=== PATIENT | male | born 2000 ===

== ENCOUNTER 2023-03-23 16:56 | Emergency (ER) | payer SELFPAY ==
[~2023-03-23] VITALS: Ht 162.6 cm; Wt 77.3 kg
[2023-03-23] MEDS ORDERED: ondansetron 4mg rapidly disintigrating tab PO ONE ×2 (18:30→21:35)
[2023-03-23] MEDS ORDERED: HYDROcodone/acetaminophen 5mg/325mg tablet PO ONE (18:30)
[2023-03-23] MEDS ORDERED: morphine 4 MG/ML inj SYRINge IM ONE (21:35)
[2023-03-23] MEDS ORDERED: OXYC-145 PO (22:40)
[2023-03-23 22:58] VITALS: BP 125/78
[2023-03-24] MEDS ORDERED: OXYC-150 PO (17:13)
== END 2023-03-23 23:04 | disposition home or self-care (01) ==
LOC: ER 16:58
DX: M53.3 Sacrococcygeal disorders, not elsewhere classified (principal); M54.59 Other low back pain; Z79.899 Other long term (current) drug therapy; W19.XXXA Unspecified fall, initial encounter; Y93.89 Activity, other specified; Y92.89 Other specified places as the place of occurrence of the external cause; Y99.8 Other external cause status
CPT/HCPCS: 72192; 96372; 99285; J2270